=== PATIENT | female | born 1940 | race Caucasian/White ===

== ENCOUNTER 2024-06-21 10:08 | Day surgery (SDC) | payer MEDICARE, BC ==
[2024-06-20 12:26] LABS: BASOPHILS % (AUTO) 0.2 % (0-1); EOSINOPHILS # (AUTO) 0.1 X10'3 (0-0.9); EOSINOPHILS % (AUTO) 1.4 % (0-6); HEMATOCRIT 40.5 % (35.0-45.0); HEMOGLOBIN 13.2 g/dl (12.0-16.0); LYMPHOCYTES # (AUTO) 1.7 X10'3 (1.1-4.8); LYMPHOCYTES % (AUTO) 21.2 % (21-51); MEAN CORPUSCULAR HGB CONC 32.5 g/dL (33.0-36.5); MEAN CORPUSCULAR VOLUME 95.2 FL (78-98); MONOCYTES # (AUTO) 0.6 X10'3 (0-0.9); MONOCYTES % (AUTO) 7.1 % (2-12); NEUTROPHILS # (AUTO) 5.6 X10'3 (1.8-7.7); NEUTROPHILS % (AUTO) 70.1 % (42-75); PLATELET COUNT 290 X10'3 (140-440); RED BLOOD COUNT 4.25 X10'6 (4.20-5.60); RED CELL DISTRIBUTION WIDTH 14.3 % (11.5-14.5)
[2024-06-20 12:32] LABS: ALBUMIN 3.8 G/DL (3.4-5.0); ANION GAP 8 (8-16); BLOOD UREA NITROGEN 16 MG/DL (7-18); CALCIUM 10.1 MG/DL (8.5-10.1); CHLORIDE 104 MMOL/L (99-107); GLUCOSE 126 MG/DL (70-104); POTASSIUM 4.6 MMOL/L (3.5-5.1); SODIUM 138 MMOL/L (135-145); TOTAL CARBON DIOXIDE 26.1 MMOL/L (24-32); eGFR 68 ML/MIN
[2024-06-20 12:36] LABS: APTT 26 SECONDS (22-32); PROTHROMBIN TIME 10.6 SECONDS (9.0-12.0)
[~2024-06-21] VITALS: Ht 149.9 cm; Wt 80.1 kg
[2024-06-21] VITALS (10 sets, daily range): BP systolic 117–144; BP diastolic 51–80; PULSE 62–78; RESP 16; TEMP 97.9; O2SAT 92–97
[2024-06-21] MEDS ORDERED: LORazepam 0.5 MG tablet PO PRN (10:40)
[2024-06-21] MEDS: normal saline 1,000 ML IV SCH (10:40)
[2024-06-21] MEDS ORDERED: diphenhydrAMINE 25mg capsule PO PRN (10:40)
[2024-06-21] MEDS ORDERED: LIDOcaine 1% (10mg/ml) 2ml vial ONE (11:08)
[2024-06-21] MEDS ORDERED: fentaNYL/PF 50MCG/1 ML 2ML syringe ONE (11:08)
[2024-06-21] MEDS ORDERED: verapamil 2.5 mg/ml inj IV ONE (11:08)
[2024-06-21] MEDS ORDERED: midazolam 1 mg/ML 2ml injection ONE (11:08)
[2024-06-21] MEDS ORDERED: nitroGLYCERIN 500mcg/5mL D5W 5 ML IV ONE (11:09)
[2024-06-21] MEDS ORDERED: iohexol 350 MG/ML 50ML vial IV ONE (11:09)
[2024-06-21] MEDS ORDERED: heparin 1,000unit/ml 10ml vial 10 ML ONE (11:09)
[2024-06-21] MEDS ORDERED: iohexol 350MG/ML 100ml bottle IV ONE (11:09)
[2024-06-21] MEDS ORDERED: FOLI1TAB27 PO (11:39)
[2024-06-21] MEDS ORDERED: FURO40TA4 PO (11:39)
[2024-06-21] MEDS ORDERED: METF-437 PO (11:39)
[2024-06-21] MEDS ORDERED: LOSA50TA64 PO (11:39)
[2024-06-21] MEDS ORDERED: APIX5TAB3 PO (11:39)
[2024-06-21] MEDS ORDERED: HYDR-3964 PO (11:39)
[2024-06-21] MEDS ORDERED: MAGN400T39 PO (11:39)
[2024-06-21] MEDS ORDERED: POTA8TAB69 PO (11:39)
[2024-06-21] MEDS ORDERED: GLIP10TA21 PO (11:39)
[2024-06-21] MEDS ORDERED: LIDOcaine 1% 30ml preserv. free vial ONE (11:49)
[2024-06-21 15:26] LABS: ISTAT HGB MIX 11.6 g/dl (12.0-16.0); ISTAT Hct MIX 34 %PCV (35-45); ISTAT O2 SATURATION MIX VENOUS 67 % (60-80); ISTAT SOURCE VEN
[2024-06-21] MEDS ORDERED: acetaminophen 325mg tablet PO ONE (16:00)
[2024-06-21] MEDS: acetaminophen 325mg tablet PO ONE (16:13)
[2024-06-26 07:46] LABS: ISTAT HGB ART 11.2 g/dl (12.0-16.0); ISTAT Hct ART 33 %PCV (35-45); ISTAT O2 SATURATION ARTERIAL 95 % (95-98); ISTAT SOURCE ART
== END 2024-06-21 17:55 | disposition home or self-care (01) ==
LOC: SSTAY O 10:08
PROVIDERS: ATTEND Internal Medicine Cardiovascular Disease
DX: I35.0 Nonrheumatic aortic (valve) stenosis (principal); I25.10 Atherosclerotic heart disease of native coronary artery without angina pectoris; I49.1 Atrial premature depolarization; I44.7 Left bundle-branch block, unspecified; I11.0 Hypertensive heart disease with heart failure; I50.32 Chronic diastolic (congestive) heart failure; E11.9 Type 2 diabetes mellitus without complications; I48.0 Paroxysmal atrial fibrillation; E78.5 Hyperlipidemia, unspecified; E66.3 Overweight; K21.9 Gastro-esophageal reflux disease without esophagitis; Z79.01 Long term (current) use of anticoagulants; Z79.84 Long term (current) use of oral hypoglycemic drugs; Z79.891 Long term (current) use of opiate analgesic; Z79.899 Other long term (current) drug therapy; Z98.890 Other specified postprocedural states; Z68.35 Body mass index [BMI] 35.0-35.9, adult; Z82.49 Family history of ischemic heart disease and other diseases of the circulatory system; Z82.3 Family history of stroke
CPT/HCPCS: 36415; 80048; 82803; 82948; 85014; 85025; 85610; 85730; 93005; 93460; 93567; 99152; 99153; A6258; A6402; C1725; C1751; C1769; C1894; J1644; J2001; J2250; J3010; J3490; J7030; Q9967; Z7610; 76937

== ENCOUNTER 2024-09-01 10:18 | Outpatient (CLI) | payer MEDICARE, BC ==
[~2024-09-01 10:18] MED LIST: APIX5TAB3 PO; FOLI1TAB27 PO; FURO40TA4 PO; GLIP10TA21 PO; HYDR-3964 PO; IODIXANOL 320 MG/ML INFUS..BTL 100ML IV ONE; LOSA50TA64 PO; MAGN400T39 PO; METF-437 PO; POTA8TAB69 PO
[2024-09-01 11:08] LABS: BASOPHILS % (AUTO) 0.3 % (0-1); EOSINOPHILS # (AUTO) 0.1 X10'3 (0-0.9); EOSINOPHILS % (AUTO) 2.2 % (0-6); HEMOGLOBIN 13.2 g/dl (12.0-16.0); LYMPHOCYTES % (AUTO) 29.8 % (21-51); MEAN CORPUSCULAR HEMOGLOBIN 29.7 PG (27.0-31.0); MEAN CORPUSCULAR HGB CONC 32.9 g/dL (33.0-36.5); MEAN CORPUSCULAR VOLUME 90.4 FL (78-98); MEAN PLATELET VOLUME 7.8 FL (7.4-10.4); MONOCYTES # (AUTO) 0.5 X10'3 (0-0.9); MONOCYTES % (AUTO) 7.6 % (2-12); NEUTROPHILS # (AUTO) 4.1 X10'3 (1.8-7.7); NEUTROPHILS % (AUTO) 60.1 % (42-75); PLATELET COUNT 316 X10'3 (140-440); RED BLOOD COUNT 4.43 X10'6 (4.20-5.60); RED CELL DISTRIBUTION WIDTH 13.7 % (11.5-14.5); WHITE BLOOD COUNT 6.8 X10'3 (4.5-11.0)
[2024-09-01 11:24] LABS: APTT 22 SECONDS (22-32); PROTHROMBIN TIME 10.9 SECONDS (9.0-12.0)
[2024-09-01 11:26] LABS: ALANINE AMINOTRANSFERASE 15 U/L (12-78); ALBUMIN 3.5 G/DL (3.4-5.0); ALBUMIN/GLOBULIN RATIO 0.9 (1.1-1.5); ALKALINE PHOSPHATASE 58 IU/L (46-116); ANION GAP 7 (8-16); ASPARTATE AMINO TRANSFERASE 11 U/L (10-37); BILIRUBIN,TOTAL 0.2 MG/DL (0.1-1.0); BLOOD UREA NITROGEN 20 MG/DL (7-18); BUN/CREATININE RATIO 24.1 (10.0-20.0); CALCIUM 9.8 MG/DL (8.5-10.1); CHLORIDE 104 MMOL/L (99-107); CREATININE 0.83 MG/DL (0.40-0.90); GLUCOSE 249 MG/DL (70-104); POTASSIUM 4.4 MMOL/L (3.5-5.1); SODIUM 139 MMOL/L (135-145); TOTAL CARBON DIOXIDE 27.8 MMOL/L (24-32); TOTAL PROTEIN 7.4 G/DL (6.4-8.2); eGFR 65 ML/MIN
== END 2024-09-01 23:59 | disposition home or self-care (01) ==
LOC: RAD 10:18
PROVIDERS: ATTEND Internal Medicine Cardiovascular Disease
DX: I35.0 Nonrheumatic aortic (valve) stenosis (principal); R06.02 Shortness of breath; N28.1 Cyst of kidney, acquired; K44.9 Diaphragmatic hernia without obstruction or gangrene; K57.30 Diverticulosis of large intestine without perforation or abscess without bleeding; K80.80 Other cholelithiasis without obstruction; I65.29 Occlusion and stenosis of unspecified carotid artery
CPT/HCPCS: 36415; 71046; 71275; 74174; 75572; 80053; 85025; 85610; 85730; 93880; Q9967

== ENCOUNTER 2024-11-01 08:00 | Outpatient (CLI) | payer MEDICARE, BC ==
[~2024-11-01 08:00] MED LIST changes: +GLIP-299 PO; -GLIP10TA21 PO; -IODIXANOL 320 MG/ML INFUS..BTL 100ML IV ONE
[2024-11-01 15:43] LABS: BASOPHILS % (AUTO) 0.5 % (0-1); EOSINOPHILS # (AUTO) 0.3 X10'3 (0-0.9); EOSINOPHILS % (AUTO) 3.1 % (0-6); LYMPHOCYTES # (AUTO) 1.9 X10'3 (1.1-4.8); LYMPHOCYTES % (AUTO) 22.5 % (21-51); MEAN CORPUSCULAR HEMOGLOBIN 27.8 PG (27.0-31.0); MEAN CORPUSCULAR HGB CONC 31.8 g/dL (33.0-36.5); MEAN CORPUSCULAR VOLUME 87.7 FL (78-98); MEAN PLATELET VOLUME 7.8 FL (7.4-10.4); MONOCYTES # (AUTO) 0.6 X10'3 (0-0.9); MONOCYTES % (AUTO) 7.5 % (2-12); NEUTROPHILS # (AUTO) 5.6 X10'3 (1.8-7.7); NEUTROPHILS % (AUTO) 66.4 % (42-75); PRE OP HEMATOCRIT 34.9 % (35.0-45.0); PRE OP HEMOGLOBIN 11.1 g/dL (12.0-16.0); PRE OP PLATELET COUNT 448 X10'3 (140-440); PRE OP WHITE BLOOD COUNT 8.5 10'3 (4.8-10.8); RED BLOOD COUNT 3.98 X10'6 (4.20-5.60); RED CELL DISTRIBUTION WIDTH 15.1 % (11.5-14.5)
[2024-11-01 15:45] LABS: BILIRUBIN,URINE NEGATIVE (Neg); CLARITY,URINE CLEAR (Clear); COLOR,URINE YELLOW (Yellow); GLUCOSE, URINE 250 mg/dl (Neg); KETONES,URINE TRACE mg/dl (Neg); LEUKOCYTE ESTERASE ,URINE NEGATIVE (Neg); NITRITES, URINE NEGATIVE (Neg); OCCULT BLOOD,URINE NEGATIVE (Neg); PROTEIN,URINE NEGATIVE (Neg); UROBILINOGEN,URINE 0.2 E.U/dL (0.2-1.0)
[2024-11-01 15:46] LABS: UA COLLECTION TYPE NON-SPECIFIED
[2024-11-01 16:08] LABS: ALBUMIN 3.4 G/DL (3.4-5.0); ALBUMIN/GLOBULIN RATIO 0.9 (1.1-1.5); ALKALINE PHOSPHATASE 66 IU/L (46-116); BLOOD UREA NITROGEN 23 MG/DL (7-18); BUN/CREATININE RATIO 24.2 (10.0-20.0); CALCIUM 9.8 MG/DL (8.5-10.1); CHLORIDE 100 MMOL/L (99-107); CREATININE 0.95 MG/DL (0.40-0.90); PRE OP ALT 15 U/L (30-65); PRE OP ANION GAP 9 (8-16); PRE OP AST 20 U/L (10-37); PRE OP BILIRUB, TOTAL 0.2 MG/DL (0.0-1.0); PRE OP POTASSIUM 4.6 MMOL/L (3.4-5.1); PRE OP SODIUM 135 MMOL/L (135-145); PRO BRAIN NATRIURETIC PEPTIDE 646 PG/ML (0-450); TOTAL CARBON DIOXIDE 26.1 MMOL/L (24-32); TOTAL PROTEIN 7.2 G/DL (6.4-8.2); eGFR 56 ML/MIN
[2024-11-01 16:22] LABS: PRE OP GLUCOSE 221 MG/DL (70-104)
[2024-11-01 16:40] LABS: PRE OP INR 1.1 INR
[2024-11-01 16:46] LABS: HEMOGLOBIN A1C 8.4 % (4.5-6.2)
[2024-11-29] MEDS ORDERED: GABA100C PO (11:07)
[2024-11-29 11:29] LABS: BASOPHILS # (AUTO) 0.1 X10'3 (0-0.2); BASOPHILS % (AUTO) 0.6 % (0-1); EOSINOPHILS # (AUTO) 0.3 X10'3 (0-0.9); EOSINOPHILS % (AUTO) 2.5 % (0-6); LYMPHOCYTES # (AUTO) 1.4 X10'3 (1.1-4.8); LYMPHOCYTES % (AUTO) 13.6 % (21-51); MEAN CORPUSCULAR HEMOGLOBIN 26.1 PG (27.0-31.0); MEAN CORPUSCULAR HGB CONC 31.7 g/dL (33.0-36.5); MEAN CORPUSCULAR VOLUME 82.4 FL (78-98); MONOCYTES # (AUTO) 0.7 X10'3 (0-0.9); MONOCYTES % (AUTO) 7.1 % (2-12); NEUTROPHILS # (AUTO) 7.6 X10'3 (1.8-7.7); NEUTROPHILS % (AUTO) 76.2 % (42-75); PRE OP HEMATOCRIT 31.4 % (35.0-45.0); PRE OP PLATELET COUNT 386 X10'3 (140-440); RED BLOOD COUNT 3.81 X10'6 (4.20-5.60); RED CELL DISTRIBUTION WIDTH 16.3 % (11.5-14.5)
[2024-11-29 11:33] LABS: BILIRUBIN,URINE NEGATIVE (Neg); CLARITY,URINE SLIGHTLY CLOUDY (Clear); COLOR,URINE YELLOW (Yellow); GLUCOSE, URINE 100 mg/dl (Neg); KETONES,URINE TRACE mg/dl (Neg); LEUKOCYTE ESTERASE ,URINE SMALL (Neg); NITRITES, URINE NEGATIVE (Neg); OCCULT BLOOD,URINE NEGATIVE (Neg); PH,URINE 6.5 (4.8-8.0); PROTEIN,URINE TRACE mg/dl (Neg); UROBILINOGEN,URINE 0.2 E.U/dL (0.2-1.0)
[2024-11-29 11:36] LABS: UA COLLECTION TYPE CLN CATCH MIDSTREAM
[2024-11-29 11:39] LABS: BACTERIA,URINE 2+ /HPF (Neg); RBC,URINE 0-2 /HPF (0-2); SQUAMOUS EPITHELIAL CELL,UR MANY /LPF (FEW)
[2024-11-29 11:40] LABS: RENAL CELLS, URINE MODERATE /HPF; TRANSITIONAL EPI CELLS,URINE MODERATE /HPF
[2024-11-29 11:41] LABS: PRE OP INR 1.1 INR; PRE OP PROTIME 11.6 SECONDS (9.0-12.0)
[2024-11-29 12:08] LABS: ALBUMIN 3.4 G/DL (3.4-5.0); ALBUMIN/GLOBULIN RATIO 0.9 (1.1-1.5); ALKALINE PHOSPHATASE 69 IU/L (46-116); BLOOD UREA NITROGEN 20 MG/DL (7-18); BUN/CREATININE RATIO 23.5 (10.0-20.0); CALCIUM 9.7 MG/DL (8.5-10.1); CHLORIDE 102 MMOL/L (99-107); CREATININE 0.85 MG/DL (0.40-0.90); PRE OP ALT 21 U/L (30-65); PRE OP ANION GAP 9 (8-16); PRE OP AST 11 U/L (10-37); PRE OP BILIRUB, TOTAL 0.3 MG/DL (0.0-1.0); PRE OP GLUCOSE 195 MG/DL (70-104); PRE OP POTASSIUM 4.4 MMOL/L (3.4-5.1); PRE OP SODIUM 139 MMOL/L (135-145); TOTAL CARBON DIOXIDE 28.3 MMOL/L (24-32); TOTAL PROTEIN 7.2 G/DL (6.4-8.2); eGFR 63 ML/MIN
[2024-11-29 12:31] LABS: PRO BRAIN NATRIURETIC PEPTIDE 1251 PG/ML (0-450)
[2024-12-05] MEDS ORDERED: ROPI0.2544 PO (16:22)
[2024-12-05] MEDS ORDERED: ONDA2VIA4 IV (19:51)
[2024-12-05] MEDS ORDERED: NYSPWD TP (19:51)
[2024-12-05] MEDS ORDERED: LORA-268 PO (19:52)
[2024-12-05] MEDS ORDERED: VANC1PLA9 IV (19:52)
[2024-12-05] MEDS ORDERED: MAGN30OR PO (19:52)
[2024-12-05] MEDS ORDERED: FERR325T28 PO (19:52)
[2024-12-05] MEDS ORDERED: ACET325T58 PO (19:52)
[2024-12-05] MEDS ORDERED: LANTUS SUBCUT (19:52)
[2024-12-07] MEDS ORDERED: FURO20TA4 PO (10:55)
[2024-12-07] MEDS ORDERED: DOXY-243 PO (10:56)
[2024-12-07] MEDS ORDERED: fentaNYL/PF 50MCG/1 ML 2ML syringe ONE (12:18)
[2024-12-07] MEDS ORDERED: midazolam 1 mg/ML 2ml injection ONE (12:18)
[2024-12-07] MEDS ORDERED: LIDOcaine 1%/PF 5ML 10 MG/ML VIAL ONE (12:24)
[2024-12-07] MEDS ORDERED: propofol inj 0 ML IV ONE (12:24)
[2024-12-07] MEDS ORDERED: meperidine/PF 25mg/ml syringe ONE (14:29)
[2024-12-25] MEDS ORDERED: METF-437 PO (11:43)
[2024-12-25] MEDS ORDERED: GLIP10TA18 PO (11:43)
[2024-12-25] MEDS ORDERED: APIX5TAB3 PO (11:43)
[2024-12-25] MEDS ORDERED: POTA-205 PO (11:43)
[2024-12-27] MEDS ORDERED: GABA-530 PO (21:48)
[2024-12-27] MEDS ORDERED: POTA8CAP20 PO (21:48)
== END 2024-11-29 23:00 | disposition home or self-care (01) ==
LOC: LAB 08:00 → EDSTATUS 12-07 10:30
PROVIDERS: ATTEND Internal Medicine Cardiovascular Disease
DX: I35.0 Nonrheumatic aortic (valve) stenosis (principal); R06.02 Shortness of breath; I44.1 Atrioventricular block, second degree
CPT/HCPCS: 36415; 71046; 80053; 81001; 81003; 83036; 83880; 85025; 85610; 85730; 86885; 86900; 86901; 86920; 87081; 87088; 93005

== ENCOUNTER 2024-11-01 22:01 | Inpatient (IN) | payer MEDICARE, BC ==
[~2024-11-01] VITALS: Ht 152.4 cm; Wt 79.2 kg
[~2024-11-01 22:01] MED LIST changes: -GLIP-299 PO; +GLIP10TA21 PO
[2024-11-01 22:37] LABS: BASOPHILS # (AUTO) 0.1 X10'3 (0-0.2); BASOPHILS % (AUTO) 0.7 % (0-1); EOSINOPHILS # (AUTO) 0.4 X10'3 (0-0.9); EOSINOPHILS % (AUTO) 4.3 % (0-6); HEMATOCRIT 30.3 % (35.0-45.0); LYMPHOCYTES # (AUTO) 2.3 X10'3 (1.1-4.8); LYMPHOCYTES % (AUTO) 28.5 % (21-51); MEAN CORPUSCULAR HEMOGLOBIN 28.4 PG (27.0-31.0); MEAN CORPUSCULAR HGB CONC 32.8 g/dL (33.0-36.5); MEAN CORPUSCULAR VOLUME 86.5 FL (78-98); MEAN PLATELET VOLUME 7.2 FL (7.4-10.4); MONOCYTES # (AUTO) 0.8 X10'3 (0-0.9); MONOCYTES % (AUTO) 9.7 % (2-12); NEUTROPHILS # (AUTO) 4.6 X10'3 (1.8-7.7); NEUTROPHILS % (AUTO) 56.8 % (42-75); PLATELET COUNT 358 X10'3 (140-440); RED BLOOD COUNT 3.51 X10'6 (4.20-5.60); RED CELL DISTRIBUTION WIDTH 14.8 % (11.5-14.5); WHITE BLOOD COUNT 8.1 X10'3 (4.5-11.0)
[2024-11-01 22:53] LABS: ALANINE AMINOTRANSFERASE 15 U/L (12-78); ALBUMIN/GLOBULIN RATIO 0.9 (1.1-1.5); ALKALINE PHOSPHATASE 58 IU/L (46-116); ANION GAP 5 (8-16); ASPARTATE AMINO TRANSFERASE 11 U/L (10-37); BILIRUBIN,TOTAL 0.2 MG/DL (0.1-1.0); BLOOD UREA NITROGEN 23 MG/DL (7-18); BUN/CREATININE RATIO 26.4 (10.0-20.0); CALCIUM 9.2 MG/DL (8.5-10.1); CHLORIDE 102 MMOL/L (99-107); CREATININE 0.87 MG/DL (0.40-0.90); GLUCOSE 195 MG/DL (70-104); POTASSIUM 4.6 MMOL/L (3.5-5.1); SODIUM 135 MMOL/L (135-145); TOTAL CARBON DIOXIDE 27.7 MMOL/L (24-32); TOTAL PROTEIN 6.5 G/DL (6.4-8.2); eCRCL 33 ML/MIN; eGFR 62 ML/MIN
[2024-11-01 23:00] LABS: MAGNESIUM 3.1 MG/DL (1.5-2.4); PRO BRAIN NATRIURETIC PEPTIDE 703 PG/ML (0-450)
[2024-11-01] MEDS ORDERED: potassium Cl 20 mEq SR tablet PO PRN ×2 (23:30)
[2024-11-01] MEDS ORDERED: ondansetron/PF 4mg/2ml inj IV PRN (23:30)
[2024-11-01] MEDS ORDERED: magnesium sulf-water 2g/50mL 50 ML IV PRN (23:30)
[2024-11-01] MEDS ORDERED: potassium Cl 40MEQ/1/2NS 520ml 520 ML IV PRN (23:30)
[2024-11-01] MEDS ORDERED: magnesium sulf-water 4G/100mL 100 ML IV PRN (23:30)
[2024-11-01] MEDS ORDERED: HYDROcodone/acetaminophen 5mg/325mg tablet PO PRN (23:30)
[2024-11-01] MEDS ORDERED: magnesium Cl slow-release 64mg tablet PO PRN (23:30)
[2024-11-01] MEDS ORDERED: magnesium hydroxide 30ml (MOM) UD suspension PO PRN (23:30)
[2024-11-01] MEDS ORDERED: acetaminophen 325mg tablet PO PRN (23:30)
[2024-11-01] MEDS ORDERED: mag hydrox/Alum hydrox/simeth 30ml oral suspension PO PRN (23:30)
[2024-11-01] MEDS ORDERED: glucagon, human recombinant 1mg kit SUBCUT PRN (23:55)
[2024-11-01] MEDS ORDERED: DEXTROSE 15 GM of carb/4 tabs (each vial/BOTTLE has 4 tablets) PO PRN ×2 (23:55)
[2024-11-01] MEDS ORDERED: dextrose 50%-water 50ml dispensing syringe IV PRN ×2 (23:55)
[2024-11-02] VITALS (19 sets, daily range): BP systolic 101–155; BP diastolic 42–81; PULSE 44–92; RESP 10–20; TEMP 97.3–97.7; O2SAT 91–100
[2024-11-02] MEDS: PERFLUTREN PROTEIN-A MICROSPHR (Optison) 0.22 MG/ML 3ML VIAL IV ONE
[2024-11-02] MEDS: furosemide 10 MG/1 ML 10ml inj IV SCH (01:12)
[2024-11-02] MEDS: Melatonin 3mg tablet PO SCH ×2 (02:34→21:46)
[2024-11-02 03:26] LABS: BASOPHILS # (AUTO) 0.1 X10'3 (0-0.2); BASOPHILS % (AUTO) 0.6 % (0-1); EOSINOPHILS # (AUTO) 0.4 X10'3 (0-0.9); EOSINOPHILS % (AUTO) 4.3 % (0-6); HEMATOCRIT 32.4 % (35.0-45.0); HEMOGLOBIN 10.5 g/dl (12.0-16.0); LYMPHOCYTES # (AUTO) 2.2 X10'3 (1.1-4.8); LYMPHOCYTES % (AUTO) 25.4 % (21-51); MEAN CORPUSCULAR HEMOGLOBIN 28.2 PG (27.0-31.0); MEAN CORPUSCULAR HGB CONC 32.6 g/dL (33.0-36.5); MEAN CORPUSCULAR VOLUME 86.4 FL (78-98); MEAN PLATELET VOLUME 7.8 FL (7.4-10.4); MONOCYTES # (AUTO) 0.8 X10'3 (0-0.9); MONOCYTES % (AUTO) 9.6 % (2-12); NEUTROPHILS # (AUTO) 5.2 X10'3 (1.8-7.7); NEUTROPHILS % (AUTO) 60.1 % (42-75); PLATELET COUNT 402 X10'3 (140-440); RED BLOOD COUNT 3.74 X10'6 (4.20-5.60); WHITE BLOOD COUNT 8.6 X10'3 (4.5-11.0)
[2024-11-02 03:41] LABS: ALBUMIN 3.2 G/DL (3.4-5.0); ANION GAP 7 (8-16); BLOOD UREA NITROGEN 22 MG/DL (7-18); BUN/CREATININE RATIO 28.6 (10.0-20.0); CALCIUM 9.7 MG/DL (8.5-10.1); CHLORIDE 101 MMOL/L (99-107); CREATININE 0.77 MG/DL (0.40-0.90); GLUCOSE 181 MG/DL (70-104); MAGNESIUM 2.9 MG/DL (1.5-2.4); POTASSIUM 4.4 MMOL/L (3.5-5.1); SODIUM 136 MMOL/L (135-145); TOTAL CARBON DIOXIDE 27.9 MMOL/L (24-32); eCRCL 38 ML/MIN; eGFR 71 ML/MIN
[2024-11-02] MEDS: INSULIN LISPRO 100 UNIT/ML INSULN.PEN MULTI-DOSE SQ SCH (07:00)
[2024-11-02] MEDS: K and/or MAG REPLACEMENT MC SCH (08:00)
[2024-11-02 09:14] LABS: BASOPHILS # (AUTO) 0.1 X10'3 (0-0.2); BASOPHILS % (AUTO) 0.7 % (0-1); EOSINOPHILS # (AUTO) 0.3 X10'3 (0-0.9); EOSINOPHILS % (AUTO) 3.2 % (0-6); HEMATOCRIT 32.1 % (35.0-45.0); HEMOGLOBIN 10.6 g/dl (12.0-16.0); LYMPHOCYTES # (AUTO) 1.7 X10'3 (1.1-4.8); LYMPHOCYTES % (AUTO) 18.6 % (21-51); MEAN CORPUSCULAR HEMOGLOBIN 28.7 PG (27.0-31.0); MEAN CORPUSCULAR HGB CONC 32.9 g/dL (33.0-36.5); MEAN CORPUSCULAR VOLUME 87.2 FL (78-98); MEAN PLATELET VOLUME 7.9 FL (7.4-10.4); MONOCYTES # (AUTO) 0.9 X10'3 (0-0.9); MONOCYTES % (AUTO) 9.3 % (2-12); NEUTROPHILS # (AUTO) 6.3 X10'3 (1.8-7.7); NEUTROPHILS % (AUTO) 68.2 % (42-75); PLATELET COUNT 376 X10'3 (140-440); RED BLOOD COUNT 3.68 X10'6 (4.20-5.60); WHITE BLOOD COUNT 9.3 X10'3 (4.5-11.0)
[2024-11-02 09:32] LABS: ALANINE AMINOTRANSFERASE 21 U/L (12-78); ALBUMIN 3.3 G/DL (3.4-5.0); ALBUMIN/GLOBULIN RATIO 0.9 (1.1-1.5); ALKALINE PHOSPHATASE 62 IU/L (46-116); ANION GAP 8 (8-16); ASPARTATE AMINO TRANSFERASE 12 U/L (10-37); BILIRUBIN,TOTAL 0.3 MG/DL (0.1-1.0); BLOOD UREA NITROGEN 21 MG/DL (7-18); BUN/CREATININE RATIO 26.3 (10.0-20.0); CALCIUM 9.8 MG/DL (8.5-10.1); CHLORIDE 105 MMOL/L (99-107); GLUCOSE 177 MG/DL (70-104); POTASSIUM 4.1 MMOL/L (3.5-5.1); SODIUM 142 MMOL/L (135-145); TOTAL CARBON DIOXIDE 29.3 MMOL/L (24-32); TOTAL PROTEIN 6.9 G/DL (6.4-8.2); eCRCL 36 ML/MIN; eGFR 68 ML/MIN
[2024-11-02] MEDS: docusate sod 100mg capsule PO SCH (10:12)
[2024-11-02] MEDS ORDERED: LIDOcaine 1% W/epiNEPHrine 1:100,000 20ml vial ONE (11:32)
[2024-11-02] MEDS ORDERED: fentaNYL/PF 50MCG/1 ML 2ML syringe ONE (11:32)
[2024-11-02] MEDS ORDERED: midazolam 1 mg/ML 2ml injection ONE ×2 (11:32→13:43)
[2024-11-02] MEDS ORDERED: ceFAZolin 1000mg inj ONE (11:33)
[2024-11-02] MEDS ORDERED: diphenhydrAMINE 50 mg/ml inj ONE (13:08)
[2024-11-02] MEDS ORDERED: HYDROcodone/acetaminophen 5mg/325mg tablet PO PRN (14:50)
[2024-11-02] MEDS: morphine 2 MG/ML inj. syringe IV PRN (15:22)
[2024-11-02] MEDS: HYDROcodone/acetaminophen 10/325mg tab PO PRN (16:27)
[2024-11-02] MEDS: vancomycin/NS 1 GM ADD-VANTAGE 250 ML X 1 DOSE IV ONE (16:42)
[2024-11-02] MEDS: furosemide 20 MG/2 ML vial IV ONE ×2 (19:05→20:05)
[2024-11-02] MEDS: potassium Cl 20 mEq SR tablet PO STA (19:36)
[2024-11-02] MEDS: insulin glargine (Lantus) pen - multi-dose SQ SCH (21:37)
[2024-11-03] VITALS (9 sets, daily range): BP systolic 112–177; BP diastolic 64–79; PULSE 60–72; RESP 14–24; TEMP 97.7–98; O2SAT 91–97
[2024-11-03 05:14] LABS: BASOPHILS % (AUTO) 0.5 % (0-1); EOSINOPHILS # (AUTO) 0.4 X10'3 (0-0.9); EOSINOPHILS % (AUTO) 4.4 % (0-6); HEMATOCRIT 29.2 % (35.0-45.0); HEMOGLOBIN 9.6 g/dl (12.0-16.0); LYMPHOCYTES # (AUTO) 1.2 X10'3 (1.1-4.8); LYMPHOCYTES % (AUTO) 15.1 % (21-51); MEAN CORPUSCULAR HEMOGLOBIN 28.5 PG (27.0-31.0); MEAN CORPUSCULAR HGB CONC 32.8 g/dL (33.0-36.5); MEAN PLATELET VOLUME 7.8 FL (7.4-10.4); MONOCYTES # (AUTO) 0.9 X10'3 (0-0.9); NEUTROPHILS # (AUTO) 5.5 X10'3 (1.8-7.7); PLATELET COUNT 338 X10'3 (140-440); RED BLOOD COUNT 3.36 X10'6 (4.20-5.60); RED CELL DISTRIBUTION WIDTH 14.7 % (11.5-14.5)
[2024-11-03 05:51] LABS: ALBUMIN 2.8 G/DL (3.4-5.0); ANION GAP 6 (8-16); BLOOD UREA NITROGEN 19 MG/DL (7-18); CALCIUM 9.1 MG/DL (8.5-10.1); CHLORIDE 106 MMOL/L (99-107); CREATININE 0.76 MG/DL (0.40-0.90); GLUCOSE 163 MG/DL (70-104); MAGNESIUM 1.7 MG/DL (1.5-2.4); POTASSIUM 4.2 MMOL/L (3.5-5.1); PRO BRAIN NATRIURETIC PEPTIDE 928 PG/ML (0-450); SODIUM 140 MMOL/L (135-145); TOTAL CARBON DIOXIDE 28.3 MMOL/L (24-32); eCRCL 38 ML/MIN; eGFR 72 ML/MIN
[2024-11-03] MEDS: losartan 50mg tablet PO ONE (15:45)
[2024-11-03] MEDS: gabapentin 300mg capsule PO ONE (20:55)
[2024-11-04] VITALS (7 sets, daily range): BP systolic 93–147; BP diastolic 44–96; PULSE 63–86; RESP 13–18; TEMP 97.2–98.1; O2SAT 90–94
[2024-11-04] MEDS: cephalexin 500mg capsule PO SCH (02:26)
[2024-11-04 06:46] LABS: BASOPHILS # (AUTO) 0.1 X10'3 (0-0.2); BASOPHILS % (AUTO) 0.6 % (0-1); EOSINOPHILS # (AUTO) 0.4 X10'3 (0-0.9); EOSINOPHILS % (AUTO) 4.7 % (0-6); HEMATOCRIT 35.3 % (35.0-45.0); HEMOGLOBIN 11.1 g/dl (12.0-16.0); LYMPHOCYTES # (AUTO) 1.6 X10'3 (1.1-4.8); MEAN CORPUSCULAR HEMOGLOBIN 28.1 PG (27.0-31.0); MEAN CORPUSCULAR HGB CONC 31.3 g/dL (33.0-36.5); MEAN CORPUSCULAR VOLUME 89.7 FL (78-98); MEAN PLATELET VOLUME 7.9 FL (7.4-10.4); NEUTROPHILS # (AUTO) 5.1 X10'3 (1.8-7.7); NEUTROPHILS % (AUTO) 62.7 % (42-75); PLATELET COUNT 298 X10'3 (140-440); RED BLOOD COUNT 3.94 X10'6 (4.20-5.60); RED CELL DISTRIBUTION WIDTH 15.2 % (11.5-14.5); WHITE BLOOD COUNT 8.1 X10'3 (4.5-11.0)
[2024-11-04 07:16] LABS: ALBUMIN 2.1 G/DL (3.4-5.0); ANION GAP 9 (8-16); BLOOD UREA NITROGEN 15 MG/DL (7-18); CALCIUM 9.4 MG/DL (8.5-10.1); CHLORIDE 101 MMOL/L (99-107); CREATININE 0.75 MG/DL (0.40-0.90); GLUCOSE 170 MG/DL (70-104); MAGNESIUM 2.2 MG/DL (1.5-2.4); SODIUM 134 MMOL/L (135-145); TOTAL CARBON DIOXIDE 24.3 MMOL/L (24-32); eCRCL 39 ML/MIN; eGFR 73 ML/MIN
[2024-11-04 07:21] LABS: POTASSIUM 4.4 MMOL/L (3.5-5.1)
[2024-11-04] MEDS: losartan 50mg tablet PO SCH (08:47)
[2024-11-05] VITALS (8 sets, daily range): BP systolic 104–148; BP diastolic 55–72; PULSE 60–73; RESP 13–23; TEMP 97–99.7; O2SAT 92–99
[2024-11-05] MEDS: gabapentin 300mg capsule PO ONE (01:27)
[2024-11-05 06:14] LABS: BASOPHILS % (AUTO) 0.5 % (0-1); EOSINOPHILS # (AUTO) 0.3 X10'3 (0-0.9); EOSINOPHILS % (AUTO) 4.3 % (0-6); HEMATOCRIT 32.3 % (35.0-45.0); HEMOGLOBIN 10.4 g/dl (12.0-16.0); LYMPHOCYTES # (AUTO) 1.8 X10'3 (1.1-4.8); LYMPHOCYTES % (AUTO) 25.1 % (21-51); MEAN CORPUSCULAR HEMOGLOBIN 27.7 PG (27.0-31.0); MEAN CORPUSCULAR HGB CONC 32.1 g/dL (33.0-36.5); MEAN CORPUSCULAR VOLUME 86.3 FL (78-98); MEAN PLATELET VOLUME 7.7 FL (7.4-10.4); MONOCYTES # (AUTO) 0.9 X10'3 (0-0.9); MONOCYTES % (AUTO) 13.3 % (2-12); NEUTROPHILS % (AUTO) 56.8 % (42-75); PLATELET COUNT 325 X10'3 (140-440); RED BLOOD COUNT 3.75 X10'6 (4.20-5.60); RED CELL DISTRIBUTION WIDTH 14.9 % (11.5-14.5)
[2024-11-05 06:41] LABS: ALBUMIN 2.7 G/DL (3.4-5.0); ANION GAP 3 (8-16); BLOOD UREA NITROGEN 15 MG/DL (7-18); BUN/CREATININE RATIO 23.8 (10.0-20.0); CALCIUM 9.5 MG/DL (8.5-10.1); CHLORIDE 103 MMOL/L (99-107); CREATININE 0.63 MG/DL (0.40-0.90); GLUCOSE 170 MG/DL (70-104); MAGNESIUM 1.8 MG/DL (1.5-2.4); SODIUM 137 MMOL/L (135-145); TOTAL CARBON DIOXIDE 30.9 MMOL/L (24-32); eCRCL 46 ML/MIN; eGFR 90 ML/MIN
[2024-11-05] MEDS: insulin glargine (Lantus) pen - multi-dose SQ SCH (21:14)
[2024-11-06 02:00] VITALS: BP 147/67; PULSE 62; RESP 16; TEMP 97.2; O2SAT 94
[2024-11-06 06:00] VITALS: BP 130/79; PULSE 68; RESP 19; TEMP 97.3; O2SAT 94
[2024-11-06 06:59] LABS: BASOPHILS % (AUTO) 0.5 % (0-1); EOSINOPHILS # (AUTO) 0.3 X10'3 (0-0.9); EOSINOPHILS % (AUTO) 4.7 % (0-6); HEMOGLOBIN 10.1 g/dl (12.0-16.0); LYMPHOCYTES # (AUTO) 1.4 X10'3 (1.1-4.8); LYMPHOCYTES % (AUTO) 20.1 % (21-51); MEAN CORPUSCULAR HEMOGLOBIN 28.1 PG (27.0-31.0); MEAN CORPUSCULAR HGB CONC 32.6 g/dL (33.0-36.5); MEAN CORPUSCULAR VOLUME 86.4 FL (78-98); MONOCYTES # (AUTO) 0.9 X10'3 (0-0.9); MONOCYTES % (AUTO) 12.1 % (2-12); NEUTROPHILS # (AUTO) 4.4 X10'3 (1.8-7.7); NEUTROPHILS % (AUTO) 62.6 % (42-75); PLATELET COUNT 333 X10'3 (140-440); RED BLOOD COUNT 3.59 X10'6 (4.20-5.60); RED CELL DISTRIBUTION WIDTH 14.5 % (11.5-14.5)
[2024-11-06 07:00] LABS: ALANINE AMINOTRANSFERASE 14 U/L (12-78); ALBUMIN 2.5 G/DL (3.4-5.0); ALBUMIN/GLOBULIN RATIO 0.6 (1.1-1.5); ALKALINE PHOSPHATASE 61 IU/L (46-116); ANION GAP 8 (8-16); ASPARTATE AMINO TRANSFERASE 17 U/L (10-37); BILIRUBIN,TOTAL 0.3 MG/DL (0.1-1.0); BLOOD UREA NITROGEN 14 MG/DL (7-18); BUN/CREATININE RATIO 22.2 (10.0-20.0); CALCIUM 9.5 MG/DL (8.5-10.1); CHLORIDE 100 MMOL/L (99-107); CREATININE 0.63 MG/DL (0.40-0.90); GLUCOSE 151 MG/DL (70-104); SODIUM 135 MMOL/L (135-145); TOTAL CARBON DIOXIDE 27.1 MMOL/L (24-32); TOTAL PROTEIN 6.6 G/DL (6.4-8.2); eCRCL 46 ML/MIN; eGFR 90 ML/MIN
[2024-11-06 08:00] VITALS: RESP 19; O2SAT 94
[2024-11-06] MEDS: furosemide 20 MG/2 ML vial IV SCH (08:01)
[2024-11-06 11:00] VITALS: BP 138/65; PULSE 64; RESP 19; TEMP 97.3; O2SAT 92
== END 2024-11-06 12:20 | disposition swing bed (61) | DRG 242 ==
LOC: ER 22:02 → ED HOLD 23:35 → PCU 3S 11-02 03:45
PROVIDERS: ADMIT Internal Medicine Critical Care Medicine; ATTEND Nurse Practitioner Family
PROC: 0JH606Z Insertion of Pacemaker, Dual Chamber into Chest Subcutaneous Tissue and Fascia, Open Approach (ICD-10-PCS; principal; 2024-11-05)
PROC: 02H63JZ Insertion of Pacemaker Lead into Right Atrium, Percutaneous Approach (ICD-10-PCS; 2024-11-05)
PROC: 02HK3JZ Insertion of Pacemaker Lead into Right Ventricle, Percutaneous Approach (ICD-10-PCS; 2024-11-05)
DX: I44.1 Atrioventricular block, second degree (principal); I50.33 Acute on chronic diastolic (congestive) heart failure; E83.42 Hypomagnesemia; Z66 Do not resuscitate; E78.5 Hyperlipidemia, unspecified; G89.29 Other chronic pain; F41.9 Anxiety disorder, unspecified; I11.0 Hypertensive heart disease with heart failure; I25.10 Atherosclerotic heart disease of native coronary artery without angina pectoris; I35.0 Nonrheumatic aortic (valve) stenosis; I48.0 Paroxysmal atrial fibrillation; I44.7 Left bundle-branch block, unspecified; K21.9 Gastro-esophageal reflux disease without esophagitis; Z63.4 Disappearance and death of family member; I27.20 Pulmonary hypertension, unspecified; E11.65 Type 2 diabetes mellitus with hyperglycemia; Z79.01 Long term (current) use of anticoagulants; Z79.84 Long term (current) use of oral hypoglycemic drugs; Z82.3 Family history of stroke; Z87.891 Personal history of nicotine dependence; Z95.0 Presence of cardiac pacemaker; Z98.1 Arthrodesis status; Z79.4 Long term (current) use of insulin
CPT/HCPCS: 33208; 36415; 71045; 80048; 80053; 82948; 83735; 83880; 84484; 85025; 87081; 93005; 93306; 97110; 97161; 97530; 99152; 99153; 99291; A4565; A4615; A6449; C1785; C1898; G0378; J0690; J1200; J1815; J1940; J2250; J2270; J3010; J3370; J3490; J7030